=== PATIENT | male | born 1990 | race African-American/Black ===

== ENCOUNTER 2022-12-07 20:36 | Emergency (ER) | payer SELFPAY ==
[~2022-12-07] VITALS: Ht 175.3 cm; Wt 81.0 kg
[2022-12-07 21:40] VITALS: O2SAT 99
[2022-12-07] MEDS ORDERED: KETOROLAC 30MG/ML VIAL IM ONE (22:30)
[2022-12-07 23:34] VITALS: BP 121/81
[2022-12-07] MEDS ORDERED: IBUP-2029 MT (23:35)
[2022-12-08 00:09] VITALS: PULSE 99; RESP 18; TEMP 99.3
== END 2022-12-08 00:11 | disposition home or self-care (01) ==
LOC: ER 20:36
DX: S20.212A Contusion of left front wall of thorax, initial encounter (principal); W18.39XA Other fall on same level, initial encounter; Y93.89 Activity, other specified; Y92.89 Other specified places as the place of occurrence of the external cause; Y99.8 Other external cause status
CPT/HCPCS: 71045; 73090; 73110; 73130; 29125; 96372; 99284; J1885; Z7610